=== PATIENT | female | born 1990 | race Caucasian/White ===

== ENCOUNTER 2017-09-05 10:44 | Emergency (ER) | payer OTHER, MEDICAID ==
[~2017-09-05] VITALS: Ht 165.1 cm; Wt 54.0 kg
[2017-09-05] MEDS ORDERED: VITAMIN D250000 UNI1 ORAL (11:07)
[2017-09-05] MEDS ORDERED: LEXAPRO10 MG ORAL (11:07)
[2017-09-05] MEDS ORDERED: LANSOPRAZOLE15 MG ORAL (11:07)
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
[2017-09-05] MEDS ORDERED: Tylenol #3 tab (300mg/30mg) ORAL ONE (11:15)
--- NOTE | 2017-09-05 12:03 | Diagnostic Imaging Report ---
Indication: Pain status post trauma Technique: XRAY Foot Complete R Comparison: None Findings: There are acute, mildly displaced fractures through the bases of the second, third and fourth metatarsals. Fracture of the second tarsal may extend to the articular surface. There is slight joint space widening between the second and third metatarsal and middle and lateral cuneiforms. No radiopaque foreign body seen. Impression: Acute fractures of the base of the second, third and fourth metatarsals with abnormal joint space widening between the middle and lateral cuneiforms. This may suggest ligamentous injury. MRI of the forefoot recommended for further evaluation. Orthopedic followup recommended.
[2017-09-05] MEDS ORDERED: IBUPROFEN600 MG ORAL (12:26)
[2017-09-05] MEDS ORDERED: ACETAMINOPHEN-1 EAC1 ORAL (12:26)
[2017-09-05 12:30] VITALS: BP 119/81
== END 2017-09-05 12:30 | disposition home or self-care (01) ==
LOC: EMR 11:30
DX: S92.301A Fracture of unspecified metatarsal bone(s), right foot, initial encounter for closed fracture (principal); S13.4XXA Sprain of ligaments of cervical spine, initial encounter; V43.52XA Car driver injured in collision with other type car in traffic accident, initial encounter; Y93.9 Activity, unspecified; Y92.410 Unspecified street and highway as the place of occurrence of the external cause; Z88.0 Allergy status to penicillin; Z88.8 Allergy status to other drugs, medicaments and biological substances; K21.9 Gastro-esophageal reflux disease without esophagitis; F41.9 Anxiety disorder, unspecified; F32.9 Major depressive disorder, single episode, unspecified
CPT/HCPCS: 29515; 99283